=== PATIENT | male | born 1990 | race African-American/Black ===

== ENCOUNTER 2019-01-04 21:53 | Emergency (ER) | payer OTHER ==
[~2019-01-04] VITALS: Ht 188 cm; Wt 86.2 kg
[2019-01-04 21:53] VITALS: BP_SYST 140
--- NOTE | 2019-01-04 21:53 | NUR ---
Pt BIB ALS s/p witnessed seizure by friends while sitting on the bleachers at a basket ball game. Reported by ALS that he was assisted down, no fall, no hitting head or sustaining any physical injuries. Pt arrives in a post-ictal state, AAOx1. Placed on monitor car operator. Airway patent, respirations even and non-labored. VSS. No seizure activity noted at this time. Seizure precautions in effect.
--- NOTE | 2019-01-04 21:53 | NUR ---
Pt biba to bed 2 for evalution
--- NOTE | 2019-01-04 21:54 | NUR ---
Seizure precautions in place. Seizure pads applied to gurney. Side rails up.
[2019-01-04] MEDS ORDERED: LORazepam 2 MG/ML VIAL IVP ONE (22:00)
--- NOTE | 2019-01-04 22:00 | NUR ---
ER Dr. Barrera at bedside examining patient.
--- NOTE | 2019-01-04 22:20 | NUR ---
Pt to CT in stable condition, no seizure activity.
--- NOTE | 2019-01-04 22:25 | NUR ---
Pt returns from CT, on personnel monitor, no seizure activity.
--- NOTE | 2019-01-04 22:45 | NUR ---
# 18 gauge angiocath placed to LAC. Use of asceptic technique. Opsite placed over site. Blood return noted. Blood for lab drawn from site. Flushed with 10 cc of normal saline. No evidence of infiltration noted. Patient tolerated well.
[2019-01-04 23:02] LABS: BASOPHILS % (AUTO) 0.6 % (0.0-2.0); EOSINOPHILS # (AUTO) 0.1 K/uL (0.0-0.4); EOSINOPHILS % (AUTO) 2.3 % (0.0-4.0); HEMATOCRIT 41.1 % (36-54); HEMOGLOBIN 13.6 g/dL (14.0-18.0); LYMPHOCYTES # (AUTO) 1.9 K/uL (1.0-5.5); LYMPHOCYTES % (AUTO) 32.8 % (20.5-51.5); MEAN CORPUSCULAR HEMOGLOBIN 27 pg (27-31); MEAN CORPUSCULAR HGB CONC 33 % (32-36); MEAN CORPUSCULAR VOLUME 81 fL (79.0-98.0); MONOCYTES # (AUTO) 0.4 K/uL (0.0-1.0); MONOCYTES % (AUTO) 7.4 % (1.7-9.3); NEUTROPHILS # (AUTO) 3.3 K/uL (1.8-7.7); NEUTROPHILS % (AUTO) 56.9 % (40.0-70.0); PLATELET COUNT (AUTO) 204 K/uL (130-430); RED BLOOD CELL COUNT(AUTO) 5.06 MIL/uL (4.2-6.2); RED CELL DISTRIBUTION WIDTH 14.2 % (9.0-15.0); WHITE BLOOD COUNT (AUTO) 5.8 K/uL (4.8-10.8)
[2019-01-04 23:15] LABS: CALCIUM 8.3 mg/dL (8.4-11.0); CREATININE 1.27 mg/dL (0.55-1.30); POTASSIUM 3.8 mmol/L (3.5-5.1)
[2019-01-04 23:20] LABS: INR 1.1 (0.80-1.20); PROTHROMBIN TIME 10.7 SECS (9.5-12.5)
[2019-01-04 23:21] LABS: TOTAL BILIRUBIN 0.4 mg/dL (0.0-1.0)
[2019-01-04 23:59] VITALS: BP_SYST 134
--- NOTE | 2019-01-04 23:59 | NUR ---
Patient given written and verbal discharge instructions and verbalizes understanding. ER MD discussed with patient the results and treatment provided. Patient in stable condition. ID arm band removed. IV catheter removed intact and dressing applied, no active bleeding. No Rx given. Patient educated on pain management and to follow up with PMD. Pain Scale 0. Opportunity for questions provided and answered. Medication side effect fact sheet provided.
== END 2019-01-04 23:59 | disposition still patient (30) ==
LOC: SED 21:53
DX: G40.909 Epilepsy, unspecified, not intractable, without status epilepticus (principal)
CPT/HCPCS: 36415; 70450; 72125; 80053; 85025; 85610; 85730; 96374; 99284; J2060